=== PATIENT | male | born 1975 | race Caucasian/White ===

== ENCOUNTER 2023-04-23 17:58 | Emergency (ER) | payer OTHER ==
[2023-04-23 18:08] VITALS: BP 112/69; PULSE 93; RESP 16; TEMP 97.4; BMI 27.6
== END 2023-04-23 18:37 | disposition home or self-care (01) ==
LOC: JERFT 17:58
DX: A54.9 Gonococcal infection, unspecified (principal)
CPT/HCPCS: 99284-25